=== PATIENT | female | born 1955 | race Caucasian/White ===

== ENCOUNTER → 2017-12-10 | Outpatient (CLI) | payer BC ==
--- NOTE | 2017-12-10 17:47 | MR ---
MR brain without contrast HISTORY: I 63.9, R 29.2 Multiplanar multisequence imaging through the brain No comparisons There is no restricted diffusion. There is no hemorrhage or hydrocephalus. Brain signal is remarkable for some minimal periventricular white matter demyelination greater at the occipital horn of the rig ht lateral ventricle than left, no mass effect. Cerebellopontine angles, corpus callosum, pituitary, cervical medullary junction are normal. The orbits show symmetric appearance. There is inflammatory c hange present in the sphenoid sinus. Question some asymmetry at the cavernous portion of the internal carotid arteries, the artery appears diminutive on the left as compared to the right. IMPRESSION: Diminutive the internal carotid artery on the left as compared to right as described, cir aida of Bolanos MRA may be of benefit. Sinus disease. Nonspecific white matter demyelination appears mi ldly asymmetric right occipital region as compared to left of questionable clinical significance. No evidence of acute ischemia.
== END | disposition home or self-care (01) ==
LOC: RADMRIMAIN 13:07
PROVIDERS: ATTEND Psychiatry & Neurology Neurology
DX: R25.1 Tremor, unspecified (principal); R29.2 Abnormal reflex
CPT/HCPCS: 70551